=== PATIENT | male | born 2000 | race Two or more races ===

== ENCOUNTER 2023-03-19 14:03 | Emergency (ER) | payer SELFPAY ==
[2023-03-19] VITALS (10 sets, daily range): BP systolic 139–175; BP diastolic 77–97; PULSE 75–129; RESP 11–27; TEMP 36.7; O2SAT 95–100; BMI 21.5
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
[2023-03-19] MEDS: 0.9 % Sodium Chloride 1,000 ML 999 ML IVCONT ×2 (14:03→14:17)
[2023-03-19] MEDS: fentaNYL citrate/PF 100 MCG/2 ML VIAL 50 MCG IVPUSH (14:16)
[2023-03-19] MEDS: ondansetron HCL 4 MG/2 ML VIAL IVPUSH (14:16)
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
[2023-03-19] MEDS: Diphth,Pertus(ACell),Tet Adult 0.5 ML SYRINGE IM (14:25)
[2023-03-19 14:28] LABS: MANUAL DIFF FLAG NO
[2023-03-19 14:30] LABS: Basophils Absolute Auto 0.1 X10*3/uL (0.0-0.2); Basophils Percent Auto 0.5 % (0-2); Eosinophils Absolute Auto 0.2 X10*3/uL (0.0-0.4); Eosinophils Percent Auto 2.2 % (0-4); Hematocrit 33.2 % (42.0-52.0); Hemoglobin 11.4 g/dl (14.0-18.0); Imm Gran Abs Auto 0.09 X10*3/uL (0.00-0.03); Lymphocytes Absolute Auto 4.1 X10*3/uL (1.2-4.9); Lymphocytes Percent Auto 44.7 % (20-40); Mean Corpuscular HGB Conc 34.3 g/dl (31.0-36.0); Mean Corpuscular Hemoglobin 31.4 pg (27.0-33.0); Mean Corpuscular Volume 91.5 fL (80.0-98.0); Mean Platelet Volume 9.3 fL (9.4-12.4); Monocytes Absolute Auto 0.9 X10*3/uL (0.1-1.2); Monocytes Percent Auto 10.3 % (2-11); Neutrophils Absolute Auto 3.8 x10*3/uL (2.0-8.3); Neutrophils Percent Auto 41.3 % (45-73); Platelet Count 218 X10*3/uL (160-400); Red Blood Count 3.63 X10*6/uL (4.60-5.80); White Blood Count 9.1 X10*3/uL (4.8-10.8)
[2023-03-19 14:44] LABS: Alanine Aminotransferase 7 U/L (0-40); Albumin Level 3.6 g/dL (3.5-5.0); Alkaline Phosphatase 55 U/L (39-117); Anion Gap 13 (12-20); Aspartate Amino Transferase 13 U/L (5-37); Bilirubin Direct 0.2 mg/dL (0.0-0.5); Bilirubin Total 0.6 mg/dL (0.0-1.0); Blood Urea Nitrogen 8 mg/dL (9-16); Carbon Dioxide 20 mmol/L (22-29); Chloride 111 mmol/L (96-108); Creatinine Clr Calc Pharmacy 146.7; Estimated Glomerular Filt Rate > 60; Glucose Random 110 mg/dL (60-115); Magnesium 1.7 mg/dL (1.6-2.6); Potassium 4.1 mmol/L (3.3-5.1); Sodium 140 mmol/L (135-145); Total Protein 5.8 g/dL (6.5-8.0)
[2023-03-19 14:47] LABS: INTERNATIONAL NORM RATIO 1.2 (0.9-1.1); Prothrombin Time 14.9 SEC (11.1-13.3)
--- NOTE | 2023-03-19 15:00 | PC.NURSE ---
this nurse has attempted to reach [facility] ED for a nurse to nurse several times via their ED phone number [phone]. Phone rings repeatedly for for several minutes and this nurse has not been able to get though to anyone including through multiple extensions.
== END 2023-03-19 16:00 | disposition short-term general hospital (02) ==
PROVIDERS: Emergency Provider Emergency Medicine
DX: S71.132A Puncture wound without foreign body, left thigh, initial encounter (principal); S30.1XXA Contusion of abdominal wall, initial encounter; X93.XXXA Assault by handgun discharge, initial encounter; Y93.01 Activity, walking, marching and hiking; Y92.414 Local residential or business street as the place of occurrence of the external cause; Y99.9 Unspecified external cause status
CPT/HCPCS: 36415; 73502; 80048; 80076; 83735; 85025; 85610; 86850; 86900; 86901; 90471; 90715; 96361; 96365; 96375; 99285; J0690; J2405; J3010